=== PATIENT | male | born 1960 | race Caucasian/White ===

== ENCOUNTER 2017-11-26 20:37 | Emergency (ER) | payer BC ==
[2017-11-26] MEDS: IBUPROFEN 600 MG TAB PO (22:37)
== END 2017-11-27 00:19 | disposition home or self-care (01) ==
LOC: FTE 11-27 00:19
DX: S49.92XA Unspecified injury of left shoulder and upper arm, initial encounter (principal); I10 Essential (primary) hypertension; E11.9 Type 2 diabetes mellitus without complications; W20.8XXA Other cause of strike by thrown, projected or falling object, initial encounter; Y92.89 Other specified places as the place of occurrence of the external cause
CPT/HCPCS: 73060; 73090; 99283-25

== ENCOUNTER 2018-04-24 01:04 | Emergency (ER) | payer BC ==
[2018-04-24] MEDS: NICARDipine HCL 30 MG CAPSULE PO (01:53)
[2018-04-24] MEDS: HYDROCODONE/APAP (10/325) TAB PO (01:53)
[2018-04-24] MEDS: ONDANSETRON (ODT) 4 MG TAB ODT (01:53)
== END 2018-04-24 04:43 | disposition home or self-care (01) ==
LOC: E/R 01:04
DX: I10 Essential (primary) hypertension (principal); E11.9 Type 2 diabetes mellitus without complications; R40.2142 Coma scale, eyes open, spontaneous, at arrival to emergency department; R40.2252 Coma scale, best verbal response, oriented, at arrival to emergency department; R40.2362 Coma scale, best motor response, obeys commands, at arrival to emergency department; Z79.4 Long term (current) use of insulin
CPT/HCPCS: 70450; 99284-25